=== PATIENT | male | born 1950 | race Two or more races ===

== ENCOUNTER → 2016-09-17 | Outpatient (CLI) | payer MEDICARE ==
--- NOTE | 2016-09-17 15:05 | US ---
EXAMINATION TYPE: US carotid duplex BILAT DATE OF EXAM: 09/17/2016 2:38 PM COMPARISON: NONE CLINICAL HISTORY: R42 dizziness and giddiness. left arm paresthesia per patient, dizziness, right pos terior head pain last week; HTN EXAM MEASUREMENTS: RIGHT: Peak Systolic Velocity (PSV) cm/sec ----- Right CCA: 53.8 ----- Right ICA: 66.4 ----- Right ECA: 71.5 ICA/CCA ratio: 1.2 RIGHT: End Diastole cm/sec ----- Right CCA: 18.4 ----- Right ICA: 32.3 ----- Right ECA: 21.0 LEFT: Peak Systolic Velocity (PSV) cm/sec ----- Left CCA: 66.0 ----- Left ICA: 57.3 ----- Left ECA: 63.4 ICA/CCA ratio: 0.9 LEFT: End Diastole cm/sec ----- Left CCA: 15.4 ----- Left ICA: 25.0 ----- Left ECA: 17.1 VERTEBRALS (direction of flow): Right Vertebral: Antegrade Left Vertebral: Antegrade Mild intimal thickening at bilateral carotid bifurcation and PSV is wnl. Incidental finding of left t hyroid nodule (0.9 x 0.9 x 0.7cm) is noted. IMPRESSION: 1. I SEE NO EVIDENCE OF A HEMODYNAMICALLY SIGNIFICANT STENOSIS IN EITHER CAROTID SYSTEM. 2. 9 MM LEFT-SIDED THYROID NODULE. Criteria for Assigning % of Stenosis / Diameter reduction (Estimation based on the indirect measurements of the internal carotid artery velocities (ICA PSV). 1. Normal (no stenosis)=ICA PSV < 125 cm/s: ratio < 2.0: ICA EDV<40 cm/s. 2. Less than 50% stenosis=ICA PSV < 125 cm/s: ratio < 2.0: ICA EDV<40 cm/s. 3. 50 to 69% stenosis=ICA PSV of 125 to 230 cm/s: ration 2.0 ? 4.0: ICA EDV 40-100 cm/s. 4. Greater than 70% stenosis to near occlusion= ICA PSV > 230 cm/s: ratio > 4.0: ICA EDV > 100 cm/s. 5. Near occlusion= ICA PSV velocities may be low or undetectable: variable ratio and ICA EDV. 6. Total occlusion=unable to detect flow.
--- NOTE | 2016-09-18 11:40 | ECHOF ---
Referral Reason:Heart murmur MEASUREMENTS -------- HEIGHT: 175.3 cm WEIGHT: 101.6 kg BP: 180/100 RVIDd: 3.4 cm (< 3.3) IVSd: 1.6 cm (0.6 - 1.1) LVIDd: 3.8 cm (3.9 - 5.3) LVPWd: 1.5 cm (0.6 - 1.1) IVSs: 1.5 cm LVIDs: 3.3 cm LVPWs: 1.9 cm LA Diam: 4.1 cm (2.7 - 3.8) LAESV Index (A-L): 25.20 ml/m Ao Diam: 4.1 cm (2.0 - 3.7) AV Cusp: 1.5 cm (1.5 - 2.6) MV EXCURSION: 12.148 mm (> 18.000) MV EF SLOPE: 95 mm/s (70 - 150) EPSS: 0.8 cm MV E Evaristo: 1.21 m/s MV DecT: 111 ms MV A Evaristo: 0.37 m/s MV E/A Ratio: 3.29 FINDINGS -------- Resting tachycardia (HR>100bpm). This was a technically adequate study. The left ventricular size is normal. There is moderate concentric left ventricular hypertrophy. Overall left ventricular systolic function is mildly impaired with, an EF between 45 - 50 %. The EF maybe underestimated because of tachycardia. The right ventricle is mildly enlarged. The left atrium is mildly dilated. The right atrium is normal in size. There is mild to moderate aortic valve sclerosis. There is mild aortic regurgitation. Mild mitral annular calcification present. Mild mitral regurgitation is present. CONCLUSIONS -------- 1. Resting tachycardia (HR>100bpm). 2. There is mild aortic regurgitation. 3. Mild mitral annular calcification present. 4. Mild mitral regurgitation is present. 5. This was a technically adequate study. 6. The left ventricular size is normal. 7. There is moderate concentric left ventricular hypertrophy. 8. Overall left ventricular systolic function is mildly impaired with, an EF between 45 - 50 %. 9. The right ventricle is mildly enlarged. 10. The left atrium is mildly dilated. 11. The right atrium is normal in size. 12. There is mild to moderate aortic valve sclerosis. ADMINISTRATIVE PROCESSOR: Joanne George RDCS
== END | disposition home or self-care (01) ==
LOC: RADECHMAIN 13:34
PROVIDERS: ATTEND Family Medicine
DX: I08.0 Rheumatic disorders of both mitral and aortic valves (principal); R42 Dizziness and giddiness
CPT/HCPCS: 93306; 93880

== ENCOUNTER → 2016-09-28 | Outpatient (CLI) | payer MEDICARE ==
[~2016-09-28] MED LIST: METOPROLOL TARTRATE 50 MG TAB PO NR; amLODIPine 5 MG TAB PO NR
[2016-09-28 11:08] VITALS: BP 192/111; PULSE 75; RESP 16
--- NOTE | 2016-09-28 12:24 | PN ---
This gentleman came in for a stress test today, was found to be in what seemed to be an atrial flutter with a 2:1 or a PAT. His blood pressure was also significantly elevated. I gave him nitroglycerin. Subsequently Lopressor 50 mg, amlodipine 5 mg was given. After examining him and listening to the carotids, I performed a carotid sinus massage. He converted to sinus rhythm with nonspecific ST-T changes. I explained to the patient that we should optimize BP controlled, initiate him on a beta charly and follow up with Dr. Eagle on Saturday as scheduled. Patient's blood pressure improved. As he was asymptomatic, he was discharged and the stress test was canceled. I personally spoke to Dr. Eagle and explained to the patient. He will have a repeat stress test after his SVT issues are resolved. I offered to see him in the office next week.
== END ==
LOC: RADNMMAIN 09:50
PROVIDERS: ATTEND Family Medicine
DX: R20.2 Paresthesia of skin (principal); R42 Dizziness and giddiness; I10 Essential (primary) hypertension; R01.1 Cardiac murmur, unspecified; R00.0 Tachycardia, unspecified
CPT/HCPCS: 93017

== ENCOUNTER 2016-10-11 12:17 | Emergency (ER) | payer MEDICARE ==
--- NOTE | 2016-10-11 14:29 | ED ---
General Adult HPI - General Chief complaint: Recheck/Abnormal Lab/Rx Stated complaint: HTN,Dizziness-Sent by Time Seen by Provider: 10/11/16 13:00 Source: patient, RN notes reviewed Mode of arrival: ambulatory Limitations: no limitations - History of Present Illness Initial comments: This is a 66 her old male who presents emergency Department with a recent history of hypertension. Patient states he was supposed to get a stress test but they want to first get his blood pressure control. Patient states he woke up today with pain in the back of his head he took his blood pressure was elevated. Patient states she went to Dr. Eagle's office because of his headache and high blood pressure and because he has been getting occasionally dizzy. Patient also has been noted to be tachycardic while I'm talking to him his heart rates between 115 220. Patient denies any chest pain or palpitations. Patient denies any recent fever chills or cough. Patient denies any abdominal pain patient denies nausea vomiting or diarrhea. Patient denies any recent injury or trauma. - Related Data Home Medications Medication Instructions Recorded Confirmed Losartan-Hctz 50-12.5 mg [Hyzaar 1 tab PO DAILY 10/11/16 10/11/16 50-12.5] Metoprolol Tartrate [Lopressor] 25 mg PO BID 10/11/16 10/11/16 amLODIPine [Norvasc] 5 mg PO DAILY 10/11/16 10/11/16 cloNIDine HCL [Catapres] 0.2 mg PO ONCE 10/11/16 10/11/16 Allergies Allergy/AdvReac Type Severity Reaction Status Date / Time No Known Allergies Allergy Verified 10/11/16 13:56 Review of Systems ROS Statement: Those systems with pertinent positive or pertinent negative responses have been documented in the HPI. ROS Other: All systems not noted in ROS Statement are negative. Past Medical History Past Medical History: Hypertension History of Any Multi-Drug Resistant Organisms: None Reported Past Surgical History: No Surgical Hx Reported Past Psychological History: No Psychological Hx Reported Smoking Status: Never smoker Past Alcohol Use History: Rare Past Drug Use History: None Reported General Exam - General Exam Comments Initial Comments: GENERAL: Patient is well-developed and well-nourished. Patient is nontoxic and well- hydrated and is in mild distress. ENT: Neck is soft and supple. No significant lymphadenopathy is noted. Oropharynx is clear. Moist mucous membranes. Neck has full range of motion without eliciting any pain. EYES: The sclera were anicteric and conjunctiva were pink and moist. Extraocular movements were intact and pupils were equal round and reactive to light. Eyelids were unremarkable. PULMONARY: Unlabored respirations. Good breath sounds bilaterally. No audible rales rhonchi or wheezing was noted. CARDIOVASCULAR: Patient is tachycardic at about 115 bpm ABDOMEN: Soft and nontender with normal bowel sounds. No palpable organomegaly was noted. There is no palpable pulsatile mass. SKIN: Skin is clear with no lesions or rashes and otherwise unremarkable. NEUROLOGIC: Patient is alert and oriented x3. Cranial nerves II through XII are grossly intact. Motor and sensory are also intact. Normal speech, volume and content. Symmetrical smile. MUSCULOSKELETAL: Normal extremities with adequate strength and full range of motion. No lower extremity swelling or edema. No calf tenderness. LYMPHATICS: No significant lymphadenopathy is noted PSYCHIATRIC: Normal psychiatric evaluation. Normal interpersonal interactions appears functionally intact in deals appropriately with others. No signs of depression. No signs of anxiety. Limitations: no limitations Course Vital Signs 10/11/16 10/11/16 10/11/16 12:25 14:33 16:27 Temperature 99.3 F Pulse Rate 110 H 110 H 70 Respiratory 20 18 18 Rate Blood Pressure 166/103 147/109 153/93 O2 Sat by Pulse 100 97 99 Oximetry Medical Decision Making - Medical Decision Making Original EKG shows sinus tachycardia at 115 bpm DC interval is 190 QRS is 92 QT interval 322 QTC is 445. Patient's EKG shows no ST segment elevation or depression. Patient's heart rate slowed down to a rate in the 60s. I repeated an EKG that showed a normal sinus rhythm at 60 bpm DC interval is 152 QRS is 98 QT interval 408 QTC is 433 per patient's EKG shows some T-wave inversion in the inferior leads as well as some ST segment elevation in leads V1 and V3. I discussed keep the patient overnight and observing him however the patient refused to stay. Dr. Lira reviewed the EKGs and was not concerned. Dr. Grove wanted the patient to follow-up with him in the office as an outpatient. - Lab Data Result diagrams: 10/11/16 13:35 10/11/16 13:35 Lab Results 10/11/16 10/11/16 10/11/16 Range/Units 13:35 13:35 13:35 WBC 6.2 (3.8-10.6) k/uL RBC 4.94 (4.30-5.90) m/uL Hgb 14.9 (13.0-17.5) gm/dL Hct 42.4 (39.0-53.0) % MCV 85.8 (80.0-100.0) fL MCH 30.2 (25.0-35.0) pg MCHC 35.2 (31.0-37.0) g/dL RDW 12.7 (11.5-15.5) % Plt Count 196 (150-450) k/uL Neutrophils % 72 % Lymphocytes % 19 % Monocytes % 5 % Eosinophils % 2 % Basophils % 1 % Neutrophils # 4.5 (1.3-7.7) k/uL Lymphocytes # 1.2 (1.0-4.8) k/uL Monocytes # 0.3 (0-1.0) k/uL Eosinophils # 0.1 (0-0.7) k/uL Basophils # 0.0 (0-0.2) k/uL PT (9.0-12.0) sec INR (<1.1) APTT (22.0-30.0) sec D-Dimer (<0.60) mg/L FEU Sodium 142 (137-145) mmol/L Potassium 3.6 (3.5-5.1) mmol/L Chloride 105 (98-107) mmol/L Carbon Dioxide 23 (22-30) mmol/L Anion Gap 14 mmol/L BUN 11 (9-20) mg/dL Creatinine 0.97 (0.66-1.25) mg/dL Est GFR (MDRD) Af Amer >60 (>60 ml/min/1.73 sqM) Est GFR (MDRD) Non-Af >60 (>60 ml/min/1.73 sqM) Glucose 102 H (74-99) mg/dL Calcium 9.5 (8.4-10.2) mg/dL Magnesium 2.0 (1.6-2.3) mg/dL Total Bilirubin 1.0 (0.2-1.3) mg/dL AST 17 (17-59) U/L ALT 29 (21-72) U/L Alkaline Phosphatase 61 (38-126) U/L Total Creatine Kinase 67 (55-170) U/L CK-MB (CK-2) 1.5 (0.0-2.4) ng/mL CK-MB (CK-2) Rel Index 2.2 Troponin I 0.016 (0.000-0.034) ng/mL NT-Pro-B Natriuret Pep pg/mL Total Protein 7.5 (6.3-8.2) g/dL Albumin 4.6 (3.5-5.0) g/dL TSH 0.839 (0.465-4.680) mIU/L Free T4 0.91 (0.78-2.19) ng/dL 10/11/16 10/11/16 Range/Units 13:35 13:35 WBC (3.8-10.6) k/uL RBC (4.30-5.90) m/uL Hgb (13.0-17.5) gm/dL Hct (39.0-53.0) % MCV (80.0-100.0) fL MCH (25.0-35.0) pg MCHC (31.0-37.0) g/dL RDW (11.5-15.5) % Plt Count (150-450) k/uL Neutrophils % % Lymphocytes % % Monocytes % % Eosinophils % % Basophils % % Neutrophils # (1.3-7.7) k/uL Lymphocytes # (1.0-4.8) k/uL Monocytes # (0-1.0) k/uL Eosinophils # (0-0.7) k/uL Basophils # (0-0.2) k/uL PT 10.2 (9.0-12.0) sec INR 1.0 (<1.1) APTT 25.1 (22.0-30.0) sec D-Dimer 0.32 (<0.60) mg/L FEU Sodium (137-145) mmol/L Potassium (3.5-5.1) mmol/L Chloride (98-107) mmol/L Carbon Dioxide (22-30) mmol/L Anion Gap mmol/L BUN (9-20) mg/dL Creatinine (0.66-1.25) mg/dL Est GFR (MDRD) Af Amer (>60 ml/min/1.73 sqM) Est GFR (MDRD) Non-Af (>60 ml/min/1.73 sqM) Glucose (74-99) mg/dL Calcium (8.4-10.2) mg/dL Magnesium (1.6-2.3) mg/dL Total Bilirubin (0.2-1.3) mg/dL AST (17-59) U/L ALT (21-72) U/L Alkaline Phosphatase (38-126) U/L Total Creatine Kinase (55-170) U/L CK-MB (CK-2) (0.0-2.4) ng/mL CK-MB (CK-2) Rel Index Troponin I (0.000-0.034) ng/mL NT-Pro-B Natriuret Pep 113 pg/mL Total Protein (6.3-8.2) g/dL Albumin (3.5-5.0) g/dL TSH (0.465-4.680) mIU/L Free T4 (0.78-2.19) ng/dL Disposition Clinical Impression: Hypertension, Tachycardia Disposition: HOME SELF-CARE Condition: Good Instructions: Tachycardia (ED), Hypertension (ED) Referrals: Heriberto Eagle DO [Primary Care Provider] - 1-2 days Time of Disposition: 17:30
[2016-10-11 14:35] VITALS: RESP 18
[2016-10-11 14:50] LABS: Basophils % (A) 1 %; CH 29.6; CHCM 34.7; Eosinophils # (A) 0.1 k/uL (0-0.7); Eosinophils % (A) 2 %; HCT 42.4 % (39.0-53.0); HDW 2.75; HGB 14.9 gm/dL (13.0-17.5); Luc # (Auto) 0.06; Luc % (Auto) 1; Lymphocytes # (A) 1.2 k/uL (1.0-4.8); Lymphocytes % (A) 19 %; MCH 30.2 pg (25.0-35.0); MCHC 35.2 g/dL (31.0-37.0); MCV 85.8 fL (80.0-100.0); Mean Platelet Volume 6.9; Monocytes # (A) 0.3 k/uL (0-1.0); Monocytes % (A) 5 %; Neutrophils # (A) 4.5 k/uL (1.3-7.7); Neutrophils % (A) 72 %; RBC 4.94 m/uL (4.30-5.90); RDW 12.7 % (11.5-15.5); WBC 6.2 k/uL (3.8-10.6); WBC (Perox) 6.03
[2016-10-11 14:57] LABS: Partial Thromboplastin Time 25.1 sec (22.0-30.0); Prothrombin Time 10.2 sec (9.0-12.0)
[2016-10-11 15:11] LABS: ALT 29 U/L (21-72); AST 17 U/L (17-59); Alkaline Phosphatase 61 U/L (38-126); Anion Gap 14 mmol/L; Blood Urea Nitrogen 11 mg/dL (9-20); Calcium 9.5 mg/dL (8.4-10.2); Carbon Dioxide 23 mmol/L (22-30); Chloride 105 mmol/L (98-107); Glucose 102 mg/dL (74-99); Non-African American GFR(MDRD) >60 (>60 ml/min/1.73 sqM); Potassium 3.6 mmol/L (3.5-5.1); Sodium 142 mmol/L (137-145); Total Protein 7.5 g/dL (6.3-8.2)
--- NOTE | 2016-10-11 15:18 | XR ---
EXAMINATION TYPE: XR chest 2V DATE OF EXAM: 10/11/2016 3:14 PM HISTORY: Chest Pain. REFERENCE: NONE. FINDINGS: There are senescent changes within the lungs. Heart size is upper limits of normal. Pleural spaces are clear. IMPRESSION: NO ACUTE INTRATHORACIC ABNORMALITY.
[2016-10-11 15:23] LABS: Creatine Kinase MB 1.5 ng/mL (0.0-2.4); Troponin I 0.016 ng/mL (0.000-0.034)
[2016-10-11] MEDS ORDERED: hydrALAZINE HCL 20 MG/ML 1 ML VIAL IVP STA ×2 (16:12→16:15)
[2016-10-11] MEDS ORDERED: LABETALOL 5 MG/ML VIAL MDV IVP STA (16:16)
[2016-10-11 17:39] VITALS: BP 193/95; PULSE 72; TEMP 97.8
== END 2016-10-11 17:38 | disposition home or self-care (01) ==
LOC: EC 12:17
DX: I10 Essential (primary) hypertension (principal); R00.0 Tachycardia, unspecified; Z79.899 Other long term (current) drug therapy
CPT/HCPCS: 36415; 71020; 80053; 82550; 82553; 83735; 83880; 84439; 84443; 84484; 85025; 85379; 85610; 85730; 93005; 99284

== ENCOUNTER 2016-10-31 14:57 | Emergency (ER) | payer MEDICARE ==
[2016-10-31] MEDS ORDERED: SODIUM CHLORIDE 0.9% 500 ML IV STA (15:53)
[2016-10-31] MEDS ORDERED: SODIUM CHLORIDE 0.9% 1,000 ML IV STA (15:53)
[2016-10-31] MEDS ORDERED: KETOROLAC 30 MG/ML 1 ML VIAL IVP STA (15:53)
--- NOTE | 2016-10-31 16:00 | ED ---
General Adult HPI - General Chief complaint: Neuro Symptoms/Deficit Stated complaint: Dr Sent/Dizzy/HBP Time Seen by Provider: 10/31/16 15:05 Source: patient, family, RN notes reviewed Mode of arrival: wheelchair Limitations: no limitations - History of Present Illness Initial comments: This is a 66-year-old male who presents with complaints of a frontal headache. He states she's had a headache for some time he states is 5/10 in severity he states he has some associated dizziness with her. He states he's had these symptoms for about 1-1/2 months. He denies any fevers chills or sweats he denies any earache sore throat rhinorrhea is cough or phlegm production. Weakness palpitations or other symptoms he does state he was in the emergency department no longer usual for evaluation and early nothing came of the evaluation. He has a trauma room symptoms at this time upon arrival in triage that he was found have a heart rate of 130. He states he has no blindness or blurred vision. - Related Data Previous Rx's Medication Instructions Recorded Ibuprofen 800 mg PO Q6HR PRN #20 tablet 10/31/16 Magnesium 200 mg PO DAILY #14 tablet 10/31/16 Potassium Chloride ER [K-Dur 20] 20 meq PO DAILY #14 tab 10/31/16 Allergies Allergy/AdvReac Type Severity Reaction Status Date / Time No Known Allergies Allergy Verified 10/31/16 16:34 Review of Systems ROS Statement: Those systems with pertinent positive or pertinent negative responses have been documented in the HPI. ROS Other: All systems not noted in ROS Statement are negative. Past Medical History Past Medical History: Hypertension History of Any Multi-Drug Resistant Organisms: None Reported Past Surgical History: No Surgical Hx Reported Past Psychological History: No Psychological Hx Reported Smoking Status: Never smoker Past Alcohol Use History: Rare Past Drug Use History: None Reported General Exam - General Exam Comments Initial Comments: This is a well-developed well-nourished awake alert oriented times x 3male Limitations: no limitations General appearance: alert, in no apparent distress Head exam: Present: atraumatic, normocephalic, normal inspection Eye exam: Present: normal appearance, PERRL, EOMI. Absent: scleral icterus, conjunctival injection, periorbital swelling ENT exam: Present: mucous membranes dry Neck exam: Present: normal inspection. Absent: tenderness, meningismus, lymphadenopathy Respiratory exam: Present: normal lung sounds bilaterally. Absent: respiratory distress, wheezes, rales, rhonchi, stridor Cardiovascular Exam: Present: normal rhythm, tachycardia, normal heart sounds. Absent: systolic murmur, diastolic murmur, rubs, gallop, clicks GI/Abdominal exam: Present: soft, normal bowel sounds. Absent: distended, tenderness, guarding, rebound, rigid Extremities exam: Present: normal inspection, full ROM, normal capillary refill. Absent: tenderness, pedal edema, joint swelling, calf tenderness Back exam: Present: normal inspection Neurological exam: Present: alert, oriented X3, CN II-XII intact Psychiatric exam: Present: normal affect, normal mood Skin exam: Present: warm, dry, intact, normal color. Absent: rash Course Vital Signs 10/31/16 10/31/16 10/31/16 14:58 16:30 17:10 Temperature 97.8 F Pulse Rate 94 77 Respiratory 20 16 15 Rate Blood Pressure 175/83 153/86 150/91 O2 Sat by Pulse 99 98 98 Oximetry EKG Findings - EKG Results: EKG: interpreted by ANNE, sinus rhythm (Sinus tachycardia rate of 1:30. Interval 102 QRS 92 QT/QTC of 244/[address]-t wave elevations or depressions.) Medical Decision Making - Medical Decision Making Patient still has a frontal headache I did discuss the findings with him I did offer admission the patient has refused this point states he has states her was invalid with MS. Patient will be given supplements for potassium and magnesium is follow with his doctor return. Also increase oral fluids. - Lab Data Result diagrams: 10/31/16 15:55 10/31/16 15:55 Lab Results 10/31/16 10/31/16 10/31/16 Range/Units 15:55 15:55 15:55 WBC 6.3 (3.8-10.6) k/uL RBC 4.84 (4.30-5.90) m/uL Hgb 14.1 (13.0-17.5) gm/dL Hct 41.8 (39.0-53.0) % MCV 86.3 (80.0-100.0) fL MCH 29.1 (25.0-35.0) pg MCHC 33.7 (31.0-37.0) g/dL RDW 13.0 (11.5-15.5) % Plt Count 194 (150-450) k/uL Neutrophils % 90 % Lymphocytes % 7 % Monocytes % 3 % Eosinophils % 0 % Basophils % 0 % Neutrophils # 5.6 (1.3-7.7) k/uL Lymphocytes # 0.5 L (1.0-4.8) k/uL Monocytes # 0.2 (0-1.0) k/uL Eosinophils # 0.0 (0-0.7) k/uL Basophils # 0.0 (0-0.2) k/uL D-Dimer (<0.60) mg/L FEU Sodium 141 (137-145) mmol/L Potassium 3.3 L (3.5-5.1) mmol/L Chloride 103 (98-107) mmol/L Carbon Dioxide 23 (22-30) mmol/L Anion Gap 15 mmol/L BUN 18 (9-20) mg/dL Creatinine 1.00 (0.66-1.25) mg/dL Est GFR (MDRD) Af Amer >60 (>60 ml/min/1.73 sqM) Est GFR (MDRD) Non-Af >60 (>60 ml/min/1.73 sqM) Glucose 125 H (74-99) mg/dL Calcium 9.8 (8.4-10.2) mg/dL Magnesium 1.8 (1.6-2.3) mg/dL Total Bilirubin 0.9 (0.2-1.3) mg/dL AST 18 (17-59) U/L ALT 30 (21-72) U/L Alkaline Phosphatase 59 (38-126) U/L Total Creatine Kinase 70 (55-170) U/L CK-MB (CK-2) 0.9 (0.0-2.4) ng/mL CK-MB (CK-2) Rel Index 1.3 Troponin I 0.013 (0.000-0.034) ng/mL Total Protein 7.5 (6.3-8.2) g/dL Albumin 4.8 (3.5-5.0) g/dL TSH 0.787 (0.465-4.680) mIU/L 10/31/16 Range/Units 15:55 WBC (3.8-10.6) k/uL RBC (4.30-5.90) m/uL Hgb (13.0-17.5) gm/dL Hct (39.0-53.0) % MCV (80.0-100.0) fL MCH (25.0-35.0) pg MCHC (31.0-37.0) g/dL RDW (11.5-15.5) % Plt Count (150-450) k/uL Neutrophils % % Lymphocytes % % Monocytes % % Eosinophils % % Basophils % % Neutrophils # (1.3-7.7) k/uL Lymphocytes # (1.0-4.8) k/uL Monocytes # (0-1.0) k/uL Eosinophils # (0-0.7) k/uL Basophils # (0-0.2) k/uL D-Dimer 0.20 (<0.60) mg/L FEU Sodium (137-145) mmol/L Potassium (3.5-5.1) mmol/L Chloride (98-107) mmol/L Carbon Dioxide (22-30) mmol/L Anion Gap mmol/L BUN (9-20) mg/dL Creatinine (0.66-1.25) mg/dL Est GFR (MDRD) Af Amer (>60 ml/min/1.73 sqM) Est GFR (MDRD) Non-Af (>60 ml/min/1.73 sqM) Glucose (74-99) mg/dL Calcium (8.4-10.2) mg/dL Magnesium (1.6-2.3) mg/dL Total Bilirubin (0.2-1.3) mg/dL AST (17-59) U/L ALT (21-72) U/L Alkaline Phosphatase (38-126) U/L Total Creatine Kinase (55-170) U/L CK-MB (CK-2) (0.0-2.4) ng/mL CK-MB (CK-2) Rel Index Troponin I (0.000-0.034) ng/mL Total Protein (6.3-8.2) g/dL Albumin (3.5-5.0) g/dL TSH (0.465-4.680) mIU/L - Radiology Data Radiology results: report reviewed (I did review the imaging and reports no acute findings.), image reviewed Disposition Clinical Impression: Cephalgia, Dehydration, Hypokalemia, Hypertension Disposition: HOME SELF-CARE Condition: Good Instructions: Hypertension (ED), Hypokalemia (ED) Prescriptions: Ibuprofen 800 mg PO Q6HR PRN #20 tablet PRN Reason: Pain Magnesium 200 mg PO DAILY #14 tablet Potassium Chloride ER [K-Dur 20] 20 meq PO DAILY #14 tab Referrals: Heriberto Eagle DO [Primary Care Provider] - 1-2 days
[2016-10-31 16:14] LABS: Basophils % (A) 0 %; CH 30.1; Eosinophils % (A) 0 %; HCT 41.8 % (39.0-53.0); HDW 2.76; HGB 14.1 gm/dL (13.0-17.5); Luc # (Auto) 0.03; Luc % (Auto) 1; Lymphocytes # (A) 0.5 k/uL (1.0-4.8); Lymphocytes % (A) 7 %; MCH 29.1 pg (25.0-35.0); MCHC 33.7 g/dL (31.0-37.0); MCV 86.3 fL (80.0-100.0); Mean Platelet Volume 7.3; Monocytes # (A) 0.2 k/uL (0-1.0); Monocytes % (A) 3 %; Neutrophils # (A) 5.6 k/uL (1.3-7.7); Neutrophils % (A) 90 %; RBC 4.84 m/uL (4.30-5.90); WBC 6.3 k/uL (3.8-10.6); WBC (Perox) 6.61
[2016-10-31 16:24] LABS: ALT 30 U/L (21-72); AST 18 U/L (17-59); Alkaline Phosphatase 59 U/L (38-126); Anion Gap 15 mmol/L; Blood Urea Nitrogen 18 mg/dL (9-20); Calcium 9.8 mg/dL (8.4-10.2); Carbon Dioxide 23 mmol/L (22-30); Chloride 103 mmol/L (98-107); Glucose 125 mg/dL (74-99); Magnesium 1.8 mg/dL (1.6-2.3); Non-African American GFR(MDRD) >60 (>60 ml/min/1.73 sqM); Potassium 3.3 mmol/L (3.5-5.1); Sodium 141 mmol/L (137-145); Total Bilirubin 0.9 mg/dL (0.2-1.3); Total Protein 7.5 g/dL (6.3-8.2)
[2016-10-31 16:50] LABS: Creatine Kinase MB 0.9 ng/mL (0.0-2.4); Troponin I 0.013 ng/mL (0.000-0.034)
--- NOTE | 2016-10-31 16:55 | XR ---
EXAMINATION TYPE: XR chest 2V DATE OF EXAM: 10/31/2016 COMPARISON: 10/11/2016 INDICATION: Cough TECHNIQUE: Frontal and lateral views of the chest are obtained. FINDINGS: The heart size is normal. The pulmonary vasculature is normal. The lungs are clear. IMPRESSION: 1. No acute pulmonary process.
--- NOTE | 2016-10-31 16:56 | CT ---
EXAMINATION TYPE: CT brain wo con DATE OF EXAM: 10/31/2016 COMPARISON: NONE INDICATION: Headache and elevated blood pressure for 1 month DLP: 1121 mGycm, Automated exposure control for dose reduction was used. CONTRAST: None CT of the brain is performed utilizing 3 mm thick sections through the posterior fossa and 3 mm thick sections through the remaining calvarium. Study is performed within 24 hours of arrival to the hosp [facility]. No abnormal hyperdensity is present to suggest an acute intracranial hemorrhage. No mass lesion is evident. No acute infarcts are evident. Old lacunar infarct or ischemic change within the inferior medial left cerebellum is present. Some mild white matter change may be adjacent to the lateral ventricles. Ventricles and sulci are appropriate for the patient age. Paranasal sinuses and mastoid air cells within the [id number] are clear. IMPRESSIONS: 1. Probable old ischemic change inferior medial left cerebellum. Correlate with the patient's sympt oms. 2. Minimal periventricular white matter hypodensity, most likely on the basis of chronic white matter ischemic changes.
[2016-10-31] MEDS ORDERED: ACETAMINOPHEN TAB 500 MG TAB PO STA (17:12)
[2016-10-31] MEDS ORDERED: POTASSIUM CHLORIDE ER 20 MEQ TAB.ER PO STA (17:12)
[2016-10-31 17:37] VITALS: BP 166/78; PULSE 80; RESP 18; TEMP 98
== END 2016-10-31 17:30 | disposition home or self-care (01) ==
LOC: EC 14:57
DX: I10 Essential (primary) hypertension (principal); E87.6 Hypokalemia; E86.0 Dehydration; R00.0 Tachycardia, unspecified; R51 Headache
CPT/HCPCS: 36415; 93005; 85379; 80053; 84443; 82550; 82553; 83735; 84484; 85025; 71020; 70450; 99285; 96374; 96361; J1885

== ENCOUNTER 2016-11-09 11:06 | Inpatient (IN) | payer MEDICARE ==
[2016-11-09] MEDS ORDERED: SODIUM CHLORIDE 0.9% 1,000 ML IV STA (12:18)
[2016-11-09] MEDS ORDERED: SODIUM CHLORIDE 0.9% 500 ML IV STA (12:18)
[2016-11-09] MEDS ORDERED: MECLIZINE 12.5 MG TAB PO STA (12:18)
--- NOTE | 2016-11-09 12:23 | ED ---
Dizziness HPI - General Chief Complaint: Dizziness Stated Complaint: lightheaded, nausea Time Seen by Provider: 11/09/16 12:03 Source: patient Mode of arrival: wheelchair Limitations: no limitations - History of Present Illness Initial Comments: This 66-year-old white male presents with family with the complaint of dizziness. These describes this as a lightheadedness. He states that it has been progressively worsening over the past 6 weeks. This is his third visit to the emergency department. He denies any weakness. He has had some significant unsteadiness with ambulation. He complains of an occasional left-sided headache. He has had some shortness of breath as well. He was just seen in the hospital ER a couple of days ago and had a computed tomography scan of the brain as well as laboratory workup. The CT did not show any acute processes. His electrolytes were replaced but he refused admission at that time. He apparently is set up with a stress test in the next week or 2. He denies any chest pains. He denies any fevers or chills. No other complaints or modifying factors. - Related Data Previous Rx's Medication Instructions Recorded Ibuprofen 800 mg PO Q6HR PRN #20 tablet 10/31/16 Magnesium 200 mg PO DAILY #14 tablet 10/31/16 Potassium Chloride ER [K-Dur 20] 20 meq PO DAILY #14 tab 10/31/16 Allergies Allergy/AdvReac Type Severity Reaction Status Date / Time No Known Allergies Allergy Verified 11/09/16 12:36 Review of Systems ROS Statement: Those systems with pertinent positive or pertinent negative responses have been documented in the HPI. ROS Other: All systems not noted in ROS Statement are negative. Past Medical History Past Medical History: Hypertension History of Any Multi-Drug Resistant Organisms: None Reported Past Surgical History: No Surgical Hx Reported Past Psychological History: No Psychological Hx Reported Smoking Status: Never smoker Past Alcohol Use History: Rare Past Drug Use History: None Reported General Exam - General Exam Comments Initial Comments: GENERAL: The patient is well nourished and well hydrated. VITAL SIGNS: Heart rate, blood pressure, respiratory rate reviewed as recorded in nurse's notes. EYES: Pupils are round and reactive. Extraocular movements are intact. No conjunctival / lid redness or swelling. ENT: No external evidence of injury, swelling, or ecchymosis. Airway is patent. Throat is clear. NECK: Nontender. No swelling or evidence of injury. No subcutaneous emphysema. Trachea is midline. No thyroid mass. HEART: Regular rate and rhythm. Good peripheral pulses. LUNGS/CHEST: Breath sounds clear and equal bilaterally. No rales, rhonchi, or wheezes. No ecchymosis, subcutaneous emphysema, or tenderness. ABDOMEN: Abdomen soft without tenderness. No palpable masses or organomegaly. No peritoneal signs. No abdominal wall swelling or ecchymosis. EXTREMITIES: No extremity tenderness. Normal muscle tone and function. No thoracolumbar tenderness. NEUROLOGIC: Sensation is grossly intact. Cranial nerve exam reveals face is symmetrical, tongue is midline, speech is clear. SKIN: No abrasions or ecchymosis is noted. No induration or masses noted. PSYCHIATRIC: Alert and oriented. Appropriate behavior and judgment. Limitations: no limitations Course Vital Signs 11/09/16 11:21 Temperature 97.1 F L Pulse Rate 87 Respiratory 18 Rate Blood Pressure 155/95 O2 Sat by Pulse 100 Oximetry Medical Decision Making - Medical Decision Making The patient was seen and examined. All diagnostics were reviewed. The EKG shows a normal sinus rhythm at a rate of 73. There is some evidence of ventricular hypertrophy. There is nonspecific ST-T wave changes noted in the inferolateral leads. The UT interval is 132, QRS duration is 94, and QTC intervals 423. An IV is started and he is mildly hydrated. He receives some Antivert orally. Old records are reviewed. The computed tomography scan previously was negative. The chest x-ray today did not show any acute processes but radiologist requests to correlate for COPD. The patient denies any history of COPD and has a remote history of tobacco use in his 20s. The laboratory is all essentially within normal limits. Upon getting back from x- ray, he apparently had a spell where he was unresponsive and not communicating well which lasted for approximately 30 minutes. It then subsequently resolved in fact his normal self. The exact cause of his symptomatology is not definitively determined. It is felt as though he benefit from admission to the hospital and further neurology consultation. The patient and family are agreeable - Lab Data Result diagrams: 11/09/16 12:32 11/09/16 12:32 Lab Results 11/09/16 11/09/16 11/09/16 Range/Units 12:32 12:32 12:32 WBC 6.2 (3.8-10.6) k/uL RBC 5.13 (4.30-5.90) m/uL Hgb 16.0 (13.0-17.5) gm/dL Hct 43.1 (39.0-53.0) % MCV 84.1 (80.0-100.0) fL MCH 31.1 (25.0-35.0) pg MCHC 37.0 (31.0-37.0) g/dL RDW 12.8 (11.5-15.5) % Plt Count 208 (150-450) k/uL Neutrophils % 74 % Lymphocytes % 18 % Monocytes % 6 % Eosinophils % 1 % Basophils % 0 % Neutrophils # 4.6 (1.3-7.7) k/uL Lymphocytes # 1.1 (1.0-4.8) k/uL Monocytes # 0.4 (0-1.0) k/uL Eosinophils # 0.1 (0-0.7) k/uL Basophils # 0.0 (0-0.2) k/uL PT 10.3 (9.0-12.0) sec INR 1.0 (<1.1) APTT 22.8 (22.0-30.0) sec Sodium 146 H (137-145) mmol/L Potassium 3.6 (3.5-5.1) mmol/L Chloride 108 H (98-107) mmol/L Carbon Dioxide 22 (22-30) mmol/L Anion Gap 16 mmol/L BUN 19 (9-20) mg/dL Creatinine 1.20 (0.66-1.25) mg/dL Est GFR (MDRD) Af Amer >60 (>60 ml/min/1.73 sqM) Est GFR (MDRD) Non-Af >60 (>60 ml/min/1.73 sqM) Glucose 97 (74-99) mg/dL Calcium 10.1 (8.4-10.2) mg/dL Phosphorus 1.5 L (2.5-4.5) mg/dL Magnesium 2.2 (1.6-2.3) mg/dL Total Bilirubin 0.7 (0.2-1.3) mg/dL AST 19 (17-59) U/L ALT 36 (21-72) U/L Alkaline Phosphatase 64 (38-126) U/L Troponin I (0.000-0.034) ng/mL Total Protein 7.3 (6.3-8.2) g/dL Albumin 4.8 (3.5-5.0) g/dL TSH 0.711 (0.465-4.680) mIU/L 11/09/16 Range/Units 12:32 WBC (3.8-10.6) k/uL RBC (4.30-5.90) m/uL Hgb (13.0-17.5) gm/dL Hct (39.0-53.0) % MCV (80.0-100.0) fL MCH (25.0-35.0) pg MCHC (31.0-37.0) g/dL RDW (11.5-15.5) % Plt Count (150-450) k/uL Neutrophils % % Lymphocytes % % Monocytes % % Eosinophils % % Basophils % % Neutrophils # (1.3-7.7) k/uL Lymphocytes # (1.0-4.8) k/uL Monocytes # (0-1.0) k/uL Eosinophils # (0-0.7) k/uL Basophils # (0-0.2) k/uL PT (9.0-12.0) sec INR (<1.1) APTT (22.0-30.0) sec Sodium (137-145) mmol/L Potassium (3.5-5.1) mmol/L Chloride (98-107) mmol/L Carbon Dioxide (22-30) mmol/L Anion Gap mmol/L BUN (9-20) mg/dL Creatinine (0.66-1.25) mg/dL Est GFR (MDRD) Af Amer (>60 ml/min/1.73 sqM) Est GFR (MDRD) Non-Af (>60 ml/min/1.73 sqM) Glucose (74-99) mg/dL Calcium (8.4-10.2) mg/dL Phosphorus (2.5-4.5) mg/dL Magnesium (1.6-2.3) mg/dL Total Bilirubin (0.2-1.3) mg/dL AST (17-59) U/L ALT (21-72) U/L Alkaline Phosphatase (38-126) U/L Troponin I 0.017 (0.000-0.034) ng/mL Total Protein (6.3-8.2) g/dL Albumin (3.5-5.0) g/dL TSH (0.465-4.680) mIU/L Disposition Clinical Impression: Dizziness, Headache, Hypophosphatasia, Hypernatremia, Hyperchloremia, Hypertension, Failure of outpatient treatment, Difficulty in walking Disposition: ADMITTED IP TO THIS [facility] Condition: Good Time of Disposition: 15:11 Decision Date: 11/09/16 Decision Time: 15:11
[2016-11-09 12:54] LABS: Basophils % (A) 0 %; CH 29.7; CHCM 35.4; Eosinophils # (A) 0.1 k/uL (0-0.7); Eosinophils % (A) 1 %; HCT 43.1 % (39.0-53.0); HDW 2.85; Luc # (Auto) 0.09; Luc % (Auto) 2; Lymphocytes # (A) 1.1 k/uL (1.0-4.8); Lymphocytes % (A) 18 %; MCH 31.1 pg (25.0-35.0); MCV 84.1 fL (80.0-100.0); Mean Platelet Volume 6.8; Monocytes # (A) 0.4 k/uL (0-1.0); Monocytes % (A) 6 %; Neutrophils # (A) 4.6 k/uL (1.3-7.7); Neutrophils % (A) 74 %; RBC 5.13 m/uL (4.30-5.90); RDW 12.8 % (11.5-15.5); WBC 6.2 k/uL (3.8-10.6); WBC (Perox) 6.97
[2016-11-09 12:57] LABS: ALT 36 U/L (21-72); AST 19 U/L (17-59); Alkaline Phosphatase 64 U/L (38-126); Anion Gap 16 mmol/L; Blood Urea Nitrogen 19 mg/dL (9-20); Calcium 10.1 mg/dL (8.4-10.2); Carbon Dioxide 22 mmol/L (22-30); Chloride 108 mmol/L (98-107); Glucose 97 mg/dL (74-99); Magnesium 2.2 mg/dL (1.6-2.3); Non-African American GFR(MDRD) >60 (>60 ml/min/1.73 sqM); Partial Thromboplastin Time 22.8 sec (22.0-30.0); Phosphorous 1.5 mg/dL (2.5-4.5); Potassium 3.6 mmol/L (3.5-5.1); Prothrombin Time 10.3 sec (9.0-12.0); Sodium 146 mmol/L (137-145); Total Bilirubin 0.7 mg/dL (0.2-1.3); Total Protein 7.3 g/dL (6.3-8.2)
--- NOTE | 2016-11-09 13:05 | XR ---
EXAMINATION TYPE: XR chest 2V DATE OF EXAM: 11/09/2016 COMPARISON: 10/31/2016 TECHNIQUE: PA and lateral views submitted. HISTORY: Shortness of breath FINDINGS: The lungs are clear and there is no pneumothorax, pleural effusion, or focal pneumonia. Hypertrophi c and degenerative change of the spine. Hyperinflation suggests COPD. No overt failure. No pleural ef fusion. IMPRESSION: 1. No acute process. Correlate for COPD.
[2016-11-09] MEDS ORDERED: IBUPROFEN 800 MG TAB PO PRN (16:02)
[2016-11-09 16:29] VITALS: RESP 20
--- NOTE | 2016-11-09 16:49 | US ---
EXAMINATION TYPE: US carotid duplex BILAT DATE OF EXAM: 11/09/2016 COMPARISON: 09/17/2016 CLINICAL HISTORY: Stenosis; EC patient c/o headache with elevated B/P EXAM MEASUREMENTS: RIGHT: Peak Systolic Velocity (PSV) cm/sec ----- Right CCA: 63.9 ----- Right ICA: 72.2 ----- Right ECA: 53.8 ICA/CCA ratio: 1.1 RIGHT: End Diastole cm/sec ----- Right CCA: 24.8 ----- Right ICA: 31.5 ----- Right ECA: 10.9 LEFT: Peak Systolic Velocity (PSV) cm/sec ----- Left CCA: 59.0 ----- Left ICA: 71.2 ----- Left ECA: 58.5 ICA/CCA ratio: 1.2 LEFT: End Diastole cm/sec ----- Left CCA: 18.3 ----- Left ICA: 21.7 ----- Left ECA: 10.1 VERTEBRALS (direction of flow): Right Vertebral: Antegrade Left Vertebral: Antegrade Mild to moderate irregular wall plaque is noted at bilateral carotid bifurcation, but PSV is wnl. Inc idental finding of left thyroid nodule is also imaged. IMPRESSION: There is antegrade flow in the vertebral arteries. The images and measurements suggest c lose 30% stenosis in both internal carotid arteries. Mild plaque formation. No adverse change chaitanya red to old exam. Criteria for Assigning % of Stenosis / Diameter reduction (Estimation based on the indirect measurements of the internal carotid artery velocities (ICA PSV). 1. Normal (no stenosis)=ICA PSV < 125 cm/s: ratio < 2.0: ICA EDV<40 cm/s. 2. Less than 50% stenosis=ICA PSV < 125 cm/s: ratio < 2.0: ICA EDV<40 cm/s. 3. 50 to 69% stenosis=ICA PSV of 125 to 230 cm/s: ration 2.0 ? 4.0: ICA EDV 40-100 cm/s. 4. Greater than 70% stenosis to near occlusion= ICA PSV > 230 cm/s: ratio > 4.0: ICA EDV > 100 cm/s. 5. Near occlusion= ICA PSV velocities may be low or undetectable: variable ratio and ICA EDV. 6. Total occlusion=unable to detect flow.
--- NOTE | 2016-11-09 20:25 | MR ---
EXAMINATION TYPE: MR angio head wo con DATE OF EXAM: 11/09/2016 COMPARISON: NONE HISTORY: Dizziness, headache TECHNIQUE: Time of flight images focusing on the [place] were performed without contrast. FINDINGS: There is arterial flow in the anterior middle and posterior cerebral arteries. There is art erial flow in the vertebrobasilar artery system. The basilar artery appears to fill from a tortuous d istal right vertebral artery. I see no definite flow in the distal left vertebral artery. There is no evidence of an aneurysm. There is no mass effect. I see no evidence of stenosis. There is no sign of neovascularity. IMPRESSION: There is no definite flow in the distal left vertebral artery which could be partly occluded. No evidence of an aneurysm.
--- NOTE | 2016-11-09 20:42 | MR ---
EXAMINATION TYPE: MR brain wo/w con DATE OF EXAM: 11/09/2016 COMPARISON: NONE HISTORY: Dizziness, headache TECHNIQUE: Multiplanar, multisequence images of the brain and brainstem is performed without and with IV contras t, utilizing 19 mL intravenous MultiHance . FINDINGS: There is patchy increased signal in the periventricular white matter with numerous nodular foci that measure up to almost 1 cm. There is no mass effect nor midline shift. There is a 4 mm area of increased signal in the right side of the iraida. There is an irregular 2.5 cm area of abnormal increased signal in the left cerebellar hemisphere near the cerebellar peduncle. There is no significant enhancement of this area on the contrast images. Th ere are tiny 5 mm nodular foci in both occipital lobe convexities of increased signal seen on the dif fusion and FLAIR images. IMPRESSION: Numerous white matter high signal foci around the lateral ventricles. I would consider cheryl th demyelinating disease and chronic small vessel ischemia. High signal lesion in the left cerebellar peduncle region without mass effect. This is probably an ac chung infarct. Small right pontine lesion is probably a lacunar infarct. Small bilateral occipital lobe convexity nodular high signal foci consistent with tiny cortical infar cts. The abnormal MR angiogram today with evidence of no distal left vertebral artery flow is consistent w ith the cerebellar infarct evident.
--- NOTE | 2016-11-09 20:53 | P.CNNES ---
History of Present Illness Consult date: 11/09/16 Reason for Consult: Patient being evaluated for dizziness and recurrent lightheadedness. History of Present Illness: This patient is a 66-year-old right-handed white male who was brought into the emergency room at [facility] for evaluation of dizziness and lightheadedness. Apparently this was his third visit to the emergency room with similar complaints. Patient states that he has been having left-sided headache as well as episodes of dizziness and gait imbalance. He was seen in the emergency room just last week for similar complaints. He underwent a computed tomography scan of the brain on 10/31/2016 which revealed old ischemic left cerebellar infarct. No other acute changes were noted. Patient refused admission at that time and was discharged. He states he came back as he was having increasing symptoms of dizziness and lightheadedness. Patient states that he was having trouble walking and keeping his balance. He is scheduled to undergo further cardiac workup with a stress test as an outpatient in the next week. Patient denies any previous history of head trauma or head injury. Apparently he was seen in the emergency room and was sent for x-ray and had an episode of unresponsiveness which may have lasted several minutes in duration. When questioned about this episode today the patient has no memory of this event. Patient states that he sees his primary care physician only once a year. This is the first time in 60 years that he has been admitted to the hospital for any medical problem. He states he does not take any medications. Apparently he has seen his primary care physician only 5 times in the past several years. He denies having any previous history of seizures or head injury. Patient denies any true vertigo symptoms. Most of his complaints today are related to disequilibrium and balance problems. He denies any recent falls. He has not appreciated any change in speech or weakness in his arms or legs. He denies any previous history of stroke. Patient states he has not been taking any aspirin on any regular basis. He is not aware of what his last cervical cholesterol level may have been. We are recommending a complete stroke evaluation for the patient. Patient is now admitted and neurology has been consulted for further evaluation and recommendations. Review of Systems Constitutional: Denies chills, Denies fever Eyes: denies blurred vision, denies pain Ears, nose, mouth and throat: Denies headache, Denies sore throat Cardiovascular: Denies chest pain, Denies shortness of breath Respiratory: Denies cough Gastrointestinal: Denies abdominal pain, Denies diarrhea, Denies nausea, Denies vomiting Musculoskeletal: Denies myalgias Integumentary: Denies pruritus, Denies rash Neurological: Reports balance difficulties, Reports gait dysfunction, Reports headaches, Reports lack of coordination, Denies numbness, Denies weakness Psychiatric: Denies anxiety, Denies depression Endocrine: Denies fatigue, Denies weight change Past Medical History Past Medical History: Hypertension History of Any Multi-Drug Resistant Organisms: None Reported Past Surgical History: No Surgical Hx Reported Smoking Status: Never smoker - Past Family History Mother Family Medical History: Coronary Artery Disease (CAD) Medications and Allergies Allergies Allergy/AdvReac Type Severity Reaction Status Date / Time No Known Allergies Allergy Verified 11/09/16 12:36 Physical Examination - Vital Signs Vital Signs: Vital Signs Temp Pulse Pulse Resp BP BP Pulse Ox 11/09/16 17:10 97.3 F L 75 20 152/56 100 11/09/16 16:28 69 20 157/83 97 11/09/16 15:18 97.4 F L 71 18 164/89 100 11/09/16 11:21 97.1 F L 87 18 155/95 100 Intake and Output 11/09/16 11/09/16 11/09/16 06:59 14:59 22:59 Intake Total 390 Balance 390 Intake: IV 150 Sodium Chloride 0.9% 1, 150 000 ml @ 75 mls/hr IV . [id number] STA Rx#:[id number] Oral 240 Other: Weight 94.347 kg Patient Weight 11/10/16 06:59 Weight 94.347 kg - Constitutional General appearance: average body habitus, cooperative - EENT EENT: PERRL, mucous membranes moist - Respiratory Respiratory: lungs clear, normal breath sounds - Cardiovascular Cardiovascular: regular rate, normal S1, normal S2 Extremities: no peripheral edema bilaterally - Gastrointestinal Gastrointestinal: normoactive bowel sounds - Integumentary Integumentary: normal - Neurologic Cranial nerve examination: PERRL, EOMI, VFF, V1/V2/V3 grossly intact, face symmetric, tongue midline, intact gag reflex, intact corneal reflex, tongue deviation Speech examination: intact Sensorimotor examination: intact Detailed motor examination: grossly full strength in all extremities Motor examination - right side: 5/5: biceps, triceps, wrist flexion, wrist extension, garbage collector, hip flexors, knee extensors, dorsiflexion, toe extension (EHL) , plantarflexion Motor examination - left side: 5/5: biceps, triceps, wrist flexion, wrist extension, garbage collector, hip flexors, knee extensors, dorsiflexion, toe extension (EHL) , plantarflexion Detailed sensory examination: intact Reflex and gait examination: ataxic gate Reflexes: 1+: ankle, bicep, knee, tricep Cerebellar examination: ataxia, dysmetria - Musculoskeletal Musculoskeletal: no pain - Psychiatric Psychiatric: mood/affect appropriate, cooperative Results - Laboratory Findings CBC and BMP: 11/09/16 12:32 11/09/16 12:32 Abnormal Lab Findings: Abnormal Labs 11/09/16 12:32 Sodium 146 H Chloride 108 H Phosphorus 1.5 L Assessment and Plan (1) Acute ischemic vertebrobasilar artery cerebellar stroke Status: Acute Code(s): I63.29 - CEREBRAL INFRC DUE TO UNSP OCCLS OR STENOSIS OF PRECERB ART (2) History of cerebellar stroke Status: Acute Code(s): Z86.73 - PRSNL HX OF TIA (TIA), AND CEREB INFRC W/O RESID DEFICITS (3) Vertigo Status: Acute Code(s): R42 - DIZZINESS AND GIDDINESS (4) Difficulty in walking Status: Acute Code(s): R26.2 - DIFFICULTY IN WALKING, NOT ELSEWHERE CLASSIFIED (5) Headache Status: Acute Code(s): R51 - HEADACHE Plan: This patient is a 66-year-old male who has been having symptoms of gait imbalance and disequilibrium for the past several weeks. He has been to the emergency room at least 3 times in the past 2 weeks. He states he has been having difficulty with walking and balance problems. He also complained of left -sided headache. He was admitted today to the hospital for further evaluation. He underwent a computed tomography scan of the brain recently on 10/31/2016 which revealed old ischemic stroke in the left cerebellum. Patient denies having any previous history of stroke. He has been admitted now for a complete stroke evaluation. Patient has not had any regular follow-up in the outpatient medical clinic. He has seen his physician only 5 times in the past 10 years. We are recommending the patient be placed on aspirin daily for secondary stroke prevention. He is scheduled to undergo MRI/MRA of the brain for further evaluation. He underwent a carotid Doppler ultrasound today which reveals no significant carotid artery stenosis. We will obtain a physical therapy evaluation of his gait and disequilibrium. We will continue close neurological follow-up for the patient. Would recommend a complete stroke evaluation for the patient. His overall prognosis at this time remains guarded. Time with Patient: Greater than 30
[2016-11-09] MEDS ORDERED: FAMOTIDINE 20 MG/2 ML VIAL IV SCH (21:00)
[2016-11-10 01:32] VITALS: BP 161/104; PULSE 77; TEMP 96.7
--- NOTE | 2016-11-10 06:17 | DS ---
DATE OF ADMISSION: 11/09/2016 DATE OF DISCHARGE: 11/10/2016 FINAL DIAGNOSES: 1. 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 2. Hypertension. 3. Headaches. 4. History of hypertension. 5. Hypernatremia. 6. Mild hyperphosphatemia. DISCHARGE DISPOSITION: The patient will be transferred to [facility] in stable condition with guarded prognosis. HISTORY OF PRESENT ILLNESS: This 66-year-old gentleman with a past medical history of hypertension was admitted with headache and dizziness, was found to have left acute cerebral infarct and as well as left vertebral artery occlusion. The patient also had elevated blood pressure. The case was discussed with [facility] and the patient will be transferred for intensive neuromonitoring to [facility]. On exam, vitals are stable. Patient had left-sided cerebellar signs and nystagmus also. The blood pressure is elevated as mentioned earlier. The current medications are as follows: 1. Aspirin 325 mg daily. 2. Lovenox 40 mg subcu daily. 3. Pepcid 20 mg b.i.d. 4. Magnesium oxide 400 mg p.r.n. 5. Antivert p.r.n. 6. Romelia Ciel 20 mEq p.o. daily. 7. IV fluids 75 mL/L.
--- NOTE | 2016-11-10 08:04 | HP ---
DATE OF ADMISSION: DATE OF SERVICE: 11/09/2016 CHIEF COMPLAINT: Dizziness and headache. HISTORY OF PRESENT ILLNESS: This 66-year-old gentleman with a past medical history of hypertension, being followed by Dr. Eagle in the outpatient setting, was complaining of dizziness for the last 2 months which is gradually worsening. Today the patient came to the ER at least 3 times, but today the dizziness got worse and the patient had some headache mainly in the frontal area. Patient also had difficulty in walking, some swaying to the left side and the patient came to the ER and patient had MRI, which showed left cerebral stroke and vertebral artery occlusion. The patient was admitted for further evaluation and treatment. The blood pressure is also elevated. There is no fever, rigors, chills. No history of any hematochezia, melena. No history of dysarthria or dysphasia at this time. PAST MEDICAL HISTORY: History of hypertension. Medications prior to admission include home medications are K-Dur 20 mg p.o. daily, magnesium 20 mg daily, ibuprofen 800 mg q.6 p.r.n. ALLERGIES: None. FAMILY HISTORY: Coronary artery disease. SOCIAL HISTORY: No history of smoking. No history of alcohol intake. REVIEW OF SYSTEMS: ENT: As mentioned earlier. CARDIOVASCULAR: No angina. RESPIRATORY: As mentioned earlier. GI: As mentioned earlier. : No dysuria. NERVOUS SYSTEM: No numbness or weakness. ALLERGY/IMMUNOLOGY: No asthma or hayfever. MUSCULOSKELETAL: As mentioned earlier. HEMATOLOGY/ONCOLOGY: No history of anemia. ENDOCRINE: No history of diabetes or hypothyroidism. CONSTITUTIONAL: As mentioned earlier. DERMATOLOGY: Negative. RHEUMATOLOGY: Negative. PSYCHIATRY: Negative. PHYSICAL EXAMINATION: Patient is alert and oriented x3. Pulse 79, blood pressure 155/110, respirations 18, temperature 97.9, pulse ox is 98% on room air. HEENT: Conjunctivae normal. Oral mucosa moist. NECK: No jugular venous distention. No carotid bruit. No lymph node enlargement. CARDIOVASCULAR: S1 and S2, muffled. No S3, no S4. RESPIRATORY: Breath sounds diminished at the bases. No rhonchi, no crackles. ABDOMEN: Soft, nontender. No mass palpable. LEGS: No edema, no swelling. NERVOUS SYSTEM: Higher function as mentioned. Cranial nerves, nystagmus to the point of fixation both sides present. Otherwise, power is normal, 5/5, but cerebellar incoordination and finger -nose incoordination on the left side present SKIN: No ulcer, rash or bleeding. LYMPHATIC: No lymphadenopathy in the neck, axillae or groin. JOINTS: No active deforming arthropathy. LABS: CBC within normal limits. Sodium 146 and phosphorus 1.5. ASSESSMENT: 1. Acute left cerebellar stroke with the vertebrobasilar stroke and left vertebral artery occlusion. 2. Hypertension. 3. Hypernatremia. 4. Headaches. 5. FULL CODE. RECOMMENDATIONS AND DISCUSSION: In this 66-year-old gentleman who presented with multiple complex medical issues, we will monitor the patient closely. Continue the current medications, continue with symptomatic treatment, antiplatelet agents and DVT prophylaxis. Monitor blood pressure closely. Permissive hypertension, neurology consultation. Neurovascular work-up. I will also discuss with [facility] because of the acute cerebellar stroke and symptomatology. The patient might require intensive neuromonitoring at this time. The prognosis is guarded. Further recommendations to follow. Discussed with the patient who understands. Copy of dictation forwarded to Dr. Eagle who is the primary physician.
[2016-11-10] MEDS ORDERED: ASPIRIN 325 MG TAB PO SCH (09:00)
[2016-11-10] MEDS ORDERED: POTASSIUM CHLORIDE ER 20 MEQ TAB.ER PO SCH (09:00)
[2016-11-10] MEDS ORDERED: ENOXAPARIN 40 MG/0.4 ML SYRINGE SQ SCH (09:00)
[2016-11-10] MEDS ORDERED: MAGNESIUM OXIDE 400 MG TAB PO SCH (12:00)
== END 2016-11-10 02:15 | disposition short-term general hospital (02) | DRG 65 ==
LOC: EC 11:06 → 6SEL 15:58
PROVIDERS: ADMIT Hospitalist; ATTEND Hospitalist
DX: I63.212 Cerebral infarction due to unspecified occlusion or stenosis of left vertebral artery (principal); E87.0 Hyperosmolality and hypernatremia; E83.39 Other disorders of phosphorus metabolism; H55.00 Unspecified nystagmus; I10 Essential (primary) hypertension; R26.2 Difficulty in walking, not elsewhere classified; R51 Headache; E87.8 Other disorders of electrolyte and fluid balance, not elsewhere classified; Z79.899 Other long term (current) drug therapy; Z86.73 Personal history of transient ischemic attack (TIA), and cerebral infarction without residual deficits; Z82.49 Family history of ischemic heart disease and other diseases of the circulatory system
CPT/HCPCS: 36415; 70544; 70553; 71020; 80053; 83735; 84100; 84443; 84484; 85025; 85610; 85730; 93005; 93880; 96360; 96361; 99285